=== PATIENT | male | born 1960 | race Caucasian/White ===

== ENCOUNTER 2017-10-04 23:01 | Emergency (ER) | payer OTHER ==
[~2017-10-04] VITALS: Ht 172.7 cm; Wt 74.4 kg
[2017-10-04] MEDS ORDERED: ATARAX,VISTARIL50 MG PO (23:24)
[2017-10-04] MEDS ORDERED: MEDROL DOSEPAK4 MG PO (23:24)
[2017-10-04 23:52] VITALS: BP 107/77
== END 2017-10-04 23:53 | disposition home or self-care (01) ==
LOC: EME 23:01
DX: L42 Pityriasis rosea (principal); Z88.8 Allergy status to other drugs, medicaments and biological substances
CPT/HCPCS: 99281; 99284; J7512; Q0177

== ENCOUNTER 2018-01-21 08:55 | Emergency (ER) | payer OTHER ==
[~2018-01-21] VITALS: Ht 172.7 cm; Wt 76.2 kg
[~2018-01-21 08:55] MED LIST: ATARAX,VISTARIL50 MG PO; MEDROL DOSEPAK4 MG PO
[2018-01-21 10:05] LABS: BILIRUBIN NEGATIVE; BLOOD NEGATIVE; COLOR YELLOW ((YELLOW)); GLUCOSE (STRIP) NEGATIVE; KETONES NEGATIVE; LEUKOCYTES NEGATIVE; NITRITE NEGATIVE; PROTEIN (STRIP) NEGATIVE; SPECIFIC GRAVITY 1.019 (1.000-1.030); UROBILINOGEN 0.2 MG/DL (0.2-1.0)
[2018-01-21 10:06] LABS: APPEARANCE CLEAR ((CLEAR)); UCUL ADDED? NO
[2018-01-21] MEDS ORDERED: FLOMAX0.4 MG PO (12:36)
[2018-01-21] MEDS ORDERED: COLACE100 MG PO (12:36)
[2018-01-21 12:54] VITALS: BP 125/87
== END 2018-01-21 12:55 | disposition home or self-care (01) ==
LOC: EME 08:55
DX: R30.0 Dysuria (principal); N40.0 Benign prostatic hyperplasia without lower urinary tract symptoms; K60.2 Anal fissure, unspecified; F17.200 Nicotine dependence, unspecified, uncomplicated
CPT/HCPCS: 81003; 99281; 99283